=== PATIENT | male | born 1975 | race Hispanic/Latino ===

== ENCOUNTER 2017-04-21 01:09 | Emergency (ER) | payer SELFPAY ==
[2017-04-21 01:53] VITALS: RESP 18
[2017-04-21 02:00] LABS: BASO # 0.1 K/uL (0.0-0.2); EOS # 0.1 K/uL (0.0-0.7); EOS % 1.6 % (0.0-4.0); HEMATOCRIT 45.4 % (35.0-51.0); LYMPH # 3.2 K/uL (1.0-4.3); MEAN CORPUSCULAR HEMOGLOBIN 33.6 pg (27.0-31.0); MEAN CORPUSCULAR HGB CONC 33.6 g/dL (33.0-37.0); MEAN PLATELET VOLUME 7.8 fl (7.2-11.7); MONO # 0.8 K/uL (0.0-0.8); NEUT # 4.9 K/uL (1.8-7.0); NEUT % 53.4 % (50.0-75.0); RED CELL DISTRIBUTION WIDTH 13.9 % (11.5-14.5); WHITE BLOOD COUNT 9.2 K/uL (4.8-10.8)
[2017-04-21 02:12] LABS: ALB/GLOB RATIO 1.3 (1.0-2.1); ALCOHOL SERUM 293 mg/dl (0-10); ALKALINE PHOSPHATASE 72 U/L (38-126); ALT/SGPT 35 U/L (21-72); AST/SGOT 32 U/L (17-59); BILIRUBIN,TOTAL 0.4 mg/dl (0.2-1.3); BLOOD UREA NITROGEN 11 mg/dl (9-20); CALCIUM 8.9 mg/dL (8.4-10.2); CARBON DIOXIDE 22 mmol/L (22-30); CHLORIDE 105 mmol/L (98-107); GFR AFRICAN-AMERICAN > 60; GLUCOSE,RANDOM 104 mg/dL (75-110); POTASSIUM 4.1 MMOL/L (3.6-5.0); SODIUM 144 mmol/l (132-148); TOTAL PROTEIN 8.1 G/DL (6.3-8.2)
--- NOTE | 2017-04-21 02:13 | ED PDOC ---
HPI: Psych/Substance Abuse Time Seen by Provider: 04/21/17 01:22 Chief Complaint (Nursing): Alcohol Ingestion Chief Complaint (Provider): Alcohol Ingestion ED Caveat: Intoxicated History Per: Patient History/Exam Limitations: intoxication Current Symptoms Are (Timing): Still Present Suicide/Self Injury Attempted (Context): None Modifying Factor(s): Alcohol Additional Complaint(s): 41 year old male brought in by EMS presents to ED due to alcohol ingestion and denies any past medical history. Patient admits to drinking tonight. EMS brought patient in for possible intoxication. Patient denies all medical complaints. PCP: Non [facility] Past Medical History Reviewed: Historical Data, Nursing Documentation, Vital Signs Vital Signs: Last Vital Signs Temp Pulse 89 04/21/17 01:52 Resp 18 04/21/17 01:52 BP 150/117 H 04/21/17 01:52 Pulse Ox 95 04/21/17 01:52 - Medical History PMH: No Chronic Diseases - Surgical History Surgical History: No Surg Hx - Family History Family History: States: No Known Family Hx - Social History Alcohol: Social - Allergies Allergies/Adverse Reactions: Allergies Allergy/AdvReac Type Severity Reaction Status Date / Time No Known Allergies Allergy Verified 04/21/17 01:11 Review of Systems ROS Statement: Except As Marked, All Systems Reviewed And Found Negative ( Denies all medical complaints) Physical Exam - Reviewed Nursing Documentation Reviewed: Yes Vital Signs Reviewed: Yes - Physical Exam Appears: Positive for: Non-toxic, No Acute Distress Head Exam: Positive for: ATRAUMATIC, NORMOCEPHALIC Skin: Positive for: Normal Color, Warm, Dry Eye Exam: Positive for: Normal appearance, EOMI, PERRL Neck: Positive for: Normal, Painless ROM, Supple Cardiovascular/Chest: Positive for: Regular Rate, Rhythm. Negative for: Bradycardia Respiratory: Negative for: Respiratory Distress Gastrointestinal/Abdominal: Positive for: Soft. Negative for: Tenderness Extremity: Positive for: Normal ROM. Negative for: Deformity Neurologic/Psych: Positive for: Alert, Gait (unsteady). Negative for: Motor/ Sensory Deficits - Laboratory Results Result Diagrams: 04/21/17 01:55 04/21/17 01:55 - ECG O2 Sat by Pulse Oximetry: 95 (RA) Pulse Ox Interpretation: Normal Medical Decision Making Medical Decision Makin Initial impression: alcohol intoxication Initial plan: * EtOH serum * Labs * UDrug screen * Accucheck 0200 EtOH level: 293 Glucose level: 110 0610 Patient is awake, alert, and oriented x3. Patient walks with a steady gait and is stable for discharge home. Scribe Attestation: Documented by Grace Funes acting as a scribe for Bryan Duke MD. Scribe Attestation: All medical record entries made by the Scribe were at my direction and personally dictated by me. I have reviewed the chart and agree that the record accurately reflects my personal performance of the history, physical exam, medical decision making, and the department course for this patient. I have also personally directed, reviewed, and agree with the discharge instructions and disposition. Disposition - Clinical Impression Clinical Impression: Alcohol intoxication - Disposition Disposition: Routine/Home Disposition Time: 06:10 Condition: STABLE Instructions: Alcohol Intoxication (ED) Forms: [facility] ([place]) - POA Present On Arrival: None
[2017-04-21 06:42] VITALS: BP 127/71; PULSE 80; TEMP 97.6
[2017-04-21 20:48] VITALS: O2SAT 95
== END 2017-04-21 06:43 | disposition home or self-care (01) ==
LOC: H.ER 01:09
DX: F10.129 Alcohol abuse with intoxication, unspecified (principal); Y90.8 Blood alcohol level of 240 mg/100 ml or more
CPT/HCPCS: 80053; 82948; 85025; 99283; G0480